=== PATIENT | female | born 1960 | race African-American/Black ===

== ENCOUNTER 2016-06-14 15:41 | Emergency (ER) | payer MEDICARE, MEDICAID ==
[2016-06-14] MEDS ORDERED: DILAUDID 1 MG/ML AMP ONE (16:27)
== END 2016-06-14 18:35 | disposition home or self-care (01) ==
LOC: ER 15:41
DX: S92.341A Displaced fracture of fourth metatarsal bone, right foot, initial encounter for closed fracture (principal); S92.351A Displaced fracture of fifth metatarsal bone, right foot, initial encounter for closed fracture; S72.432A Displaced fracture of medial condyle of left femur, initial encounter for closed fracture; W01.0XXA Fall on same level from slipping, tripping and stumbling without subsequent striking against object, initial encounter; Y92.009 Unspecified place in unspecified non-institutional (private) residence as the place of occurrence of the external cause; F17.210 Nicotine dependence, cigarettes, uncomplicated
CPT/HCPCS: 72100; 73562; 73590; 73630; 96372; 99285; J1170